=== PATIENT | male | born 1990 | race Caucasian/White ===

== ENCOUNTER 2019-03-22 21:14 | Inpatient (IN) ==
[2019-03-22] MEDS ORDERED: SODIUM CHLORIDE 0.9% 2,000 ML IV STA (23:32)
[2019-03-22 23:38] LABS: Basophils % 0.3 % (0.0-0.8); Eosinophils # 0.2 10*3/uL (0.0-0.87); Eosinophils % 1.7 % (0.00-10.9); Hematocrit 41.9 VOL% (42.0-52.0); Hemoglobin 13.7 GM/DL (14.0-18.0); Immature Granulocytes % 0.6 %; Immature Granulocytes Absolute 0.08 #; Lymphocytes # 2.5 10*3/uL (1.4-4.0); Lymphocytes % 18.3 % (21.2-54.2); Mean Corpuscular HGB Conc 32.7 GM/DL (32-36); Mean Corpuscular Volume 97.7 FL (87-102); Mean Platelet Volume 10.2 FL (9.6-12.0); Monocytes % 5.8 % (1.7-12.7); Neutrophils % 73.3 % (38.7-73.9); Platelet Count 368 T/CUMM (130-400); Red Blood Count 4.29 MC/CUMM (3.8-5.5); Red Cell Distribution Width 13.2 % (9.3-17.3); White Blood Count 13.7 T/CUMM (4-12)
[2019-03-23 00:45] LABS: Albumin 3.8 G/DL (3.4-5.0)
[2019-03-23 00:50] LABS: Bilirubin,Total 0.46 MG/DL (0.2-1.0); Calcium 8.6 MG/DL (8.5-10.1); Total Protein 6.5 G/DL (6.4-8.3)
[2019-03-23 00:51] LABS: Osmolality,Calculated 292.7 MOS/KG (273-304)
[2019-03-23] MEDS ORDERED: CEFEPIME 2,000 MG in SODIUM CHLORIDE 0.9% 100 ML IV STA ×2 (02:01→02:03)
[2019-03-23] MEDS ORDERED: VANCOMYCIN INJ 1,000 MG in SODIUM CHLORIDE 0.9% 250 ML IV STA (02:01)
[2019-03-23] MEDS ORDERED: CEFEPIME 2,000 MG VIAL ONE (03:02)
[2019-03-23] MEDS ORDERED: SODIUM CHLORIDE 0.9% 100 ML IV ONE (03:03)
[2019-03-23] MEDS ORDERED: ALBUTEROL 2.5 MG/3 ML NEB RESP TX PRN (04:09)
[2019-03-23 05:42] LABS: Albumin 3.3 G/DL (3.4-5.0); Bilirubin,Total 0.5 MG/DL (0.2-1.0); Calcium 8.3 MG/DL (8.5-10.1); Osmolality,Calculated 292.8 MOS/KG (273-304); Total Protein 6.4 G/DL (6.4-8.3)
[2019-03-23] MEDS: SODIUM BICARB INJ 50 MEQ in SODIUM CHLORIDE 0.45% 1,000 ML IV SCH ×3 (05:45→22:55)
[2019-03-23] MEDS: LEVOTHYROXINE 100 MCG TABLET PO SCH (06:27)
[2019-03-23] MEDS ORDERED: SODIUM CHLORIDE 0.9% 500 ML IV ONE (06:49)
[2019-03-23 07:05] LABS: Basophils # 0.1 10*3/uL (0.0-0.2); Basophils % 0.5 % (0.0-0.8); Eosinophils # 0.2 10*3/uL (0.0-0.87); Eosinophils % 2.4 % (0.00-10.9); Hematocrit 35.7 VOL% (42.0-52.0); Hemoglobin 11.4 GM/DL (14.0-18.0); Immature Granulocytes % 0.6 %; Immature Granulocytes Absolute 0.06 #; Lymphocytes # 2.4 10*3/uL (1.4-4.0); Lymphocytes % 26.1 % (21.2-54.2); Mean Corpuscular HGB Conc 31.9 GM/DL (32-36); Mean Corpuscular Volume 99.7 FL (87-102); Mean Platelet Volume 9.2 FL (9.6-12.0); Monocytes % 6.1 % (1.7-12.7); Neutrophils % 64.3 % (38.7-73.9); Platelet Count 300 T/CUMM (130-400); Red Blood Count 3.58 MC/CUMM (3.8-5.5); Red Cell Distribution Width 13.1 % (9.3-17.3); White Blood Count 9.3 T/CUMM (4-12)
[2019-03-23 07:53] LABS: Apearance,Urine CLOUDY (Clear); Bacteria,Urine Occasional /HPF (Few); Bilirubin,Urine Negative (Negative); Blood, Urine Small mg/dL (Negative); Glucose,Urine (UA) Negative (Negative); Hyaline Casts,Urine 75 /LPF (0-3); Ketones,Urine 5 mg/dL (Negative); Mucus,Urine Many /LPF (Occasional); Nitrite,Urine Negative (Negative); Protein,Urine 100 MG/DL; RBC,Urine 1 /HPF (0-4); Urine Color Yellow (Yellow); Urine Specific Gravity 1.017 (1.001-1.035); Urine Urobilinogen < 2.0 EU/DL (0.2-1.0); WBC,Urine 17 /HPF (0-6)
[2019-03-23] MEDS: PANTOPRAZOLE 40 MG TABLET PO SCH (08:53)
[2019-03-23] MEDS ORDERED: LITHIUM 300 MG CAPSULE PO SCH (21:00)
[2019-03-23] MEDS ORDERED: ASENAPINE 5 MG SL SCH (21:00)
[2019-03-24] MEDS ORDERED: CEFEPIME 1,000 MG in SODIUM CHLORIDE 0.9% 100 ML IV SCH (04:00)
[2019-03-24] MEDS: LEVOTHYROXINE 100 MCG TABLET PO SCH (06:16)
[2019-03-24 06:26] LABS: Basophils # 0.1 10*3/uL (0.0-0.2); Basophils % 0.7 % (0.0-0.8); Eosinophils # 0.3 10*3/uL (0.0-0.87); Hematocrit 33.6 VOL% (42.0-52.0); Immature Granulocytes % 0.5 %; Immature Granulocytes Absolute 0.04 #; Lymphocytes # 1.9 10*3/uL (1.4-4.0); Lymphocytes % 25.6 % (21.2-54.2); Mean Corpuscular HGB Conc 32.7 GM/DL (32-36); Mean Corpuscular Volume 97.4 FL (87-102); Mean Platelet Volume 9.8 FL (9.6-12.0); Monocytes % 5.7 % (1.7-12.7); Neutrophils % 63.5 % (38.7-73.9); Platelet Count 294 T/CUMM (130-400); Red Blood Count 3.45 MC/CUMM (3.8-5.5); White Blood Count 7.5 T/CUMM (4-12)
[2019-03-24 06:51] LABS: Calcium 8.2 MG/DL (8.5-10.1)
[2019-03-24] MEDS: PANTOPRAZOLE 40 MG TABLET PO SCH (08:00)
[2019-03-24] MEDS: SODIUM BICARB INJ 50 MEQ in SODIUM CHLORIDE 0.45% 1,000 ML IV SCH ×2 (09:12→17:57)
[2019-03-24] MEDS: lamoTRIgine 100 MG TABLET PO SCH (12:19)
[2019-03-25] MEDS: SODIUM BICARB INJ 50 MEQ in SODIUM CHLORIDE 0.45% 1,000 ML IV SCH ×3 (03:12→18:27)
[2019-03-25] MEDS: LEVOTHYROXINE 100 MCG TABLET PO SCH (06:38)
[2019-03-25] MEDS: PANTOPRAZOLE 40 MG TABLET PO SCH (08:29)
[2019-03-25] MEDS: lamoTRIgine 100 MG TABLET PO SCH (08:29)
[2019-03-25 10:19] LABS: Osmolality,Calculated 294.6 MOS/KG (273-304)
[2019-03-26] MEDS: SODIUM BICARB INJ 50 MEQ in SODIUM CHLORIDE 0.45% 1,000 ML IV SCH ×2 (03:50→11:07)
[2019-03-26] MEDS: LEVOTHYROXINE 100 MCG TABLET PO SCH (06:32)
[2019-03-26 06:41] LABS: Calcium 8.3 MG/DL (8.5-10.1); Osmolality,Calculated 292.4 MOS/KG (273-304)
[2019-03-26] MEDS: lamoTRIgine 100 MG TABLET PO SCH (08:29)
[2019-03-26] MEDS: PANTOPRAZOLE 40 MG TABLET PO SCH (08:29)
[2019-03-26 11:55] VITALS: BP 104/74
== END 2019-03-26 13:30 | disposition home or self-care (01) | DRG 684 ==
LOC: N.ED 21:14 → N.EDINP 03-23 04:09 → SUATTDRO 03-23 04:09 → N.CC 03-23 04:38 → N.5E 03-24 13:47
PROVIDERS: ADMIT Internal Medicine; ATTEND Phlebology